=== PATIENT | male | born 1960 | race Caucasian/White ===

== ENCOUNTER → 2018-04-06 | Outpatient (CLI) | payer BC ==
[2018-04-06 18:01] LABS: BLOOD UREA NITROGEN 24 mg/dl (7-18); CARBON DIOXIDE 26 mmol/L (21-32); CREATININE 1.19 mg/dl (0.60-1.40); GLUCOSE 177 mg/dl (70-99); POTASSIUM 3.9 mmol/L (3.5-5.1); SODIUM 140 mmol/L (136-145)
== END | disposition home or self-care (01) ==
LOC: C.LABMFLN 14:17
PROVIDERS: ATTEND Family Medicine
DX: I10 Essential (primary) hypertension (principal)

== ENCOUNTER 2020-02-27 05:07 | Inpatient (IN) ==
--- NOTE | 2020-02-04 13:57 | Anesthesiology Consultation ---
Date of Service February 04, 2020 Assessment & Plan (1) Encounter for pre-operative examination: COVID Status: As of 02/03 assessment, patient denies travel to endemic area, known exposure/sick contacts, or symptoms of COVID19. Patient made aware to social distance, wear a mask in public and avoid travel for 14 days prior to surgery. 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 Preoperative COVID19 testing to be completed prior to surgery. Chart Review Chart Review: Acceptable Risk for Surgery and Patient seen in Pre Admission Testing Teaching & Discussion Instructed NPO after midnight before surgery, except medications with 15 cc of water. Medication instructions provided according to the PAT guidelines. History Surgery Operation Date: 02/27/20 10:10 Proposed Procedures p Right Total Knee Arthroplasty - Aleksey Rios MD Height/Weight Height: 6 ft 1 in Weight: 121.6 kg Allergies Allergy/AdvReac Type Severity Reaction Status Date / Time ragweed pollen Allergy Mild WATERY Verified 02/03/20 16:07 EYES/ITCHY THROAT BRAD Inhibitors Allergy Unknown UNSURE OF Verified 02/03/20 16:07 REACTION Cholestatin Allergy Unknown UNSURE OF Uncoded 02/03/20 16:07 REACTION Medications Home Medications Medication Instructions Recorded Confirmed Last Taken loratadine 10 mg tablet 10 mg PO DAILY #1 tab 01/31/19 02/03/20 Unknown furosemide 20 mg tablet 20 mg PO DAILY #90 tab 05/01/19 02/03/20 Unknown losartan 100 mg tablet 100 mg PO DAILY #90 tab 05/01/19 02/03/20 Unknown amlodipine 2.5 mg tablet 2.5 mg PO DAILY #90 tab 09/30/19 02/03/20 Unknown meloxicam 15 mg tablet 15 mg PO DAILY #30 tab 10/11/19 02/03/20 Unknown glucos sul [id number] 1 cap PO BID 02/03/20 02/03/20 Unknown [Glucosamine Chondroitin] Past Medical History Medical History Environmental allergies Hypertension Osteoarthritis Exercise / Class Metabolic Activity II 4-5 Yardwork/Stairs/Walk up hill (Denies Cp or SOB with 1 FOS) Past Family History Family History Brother Family history of diabetes mellitus Past Surgical History Surgical History H/O arthroscopic knee surgery R and L History of ankle surgery RT ANKLE History of colonoscopy History of tooth extraction Past Anesthesia History No Hx of Anesthesia Complications and No Family Hx of Anesthesia Complications History of PONV No Hx of PONV and No Hx of Motion Sickness Social History Smoking Status: Never smoker Do You Dip or Chew Tobacco: No Hx Alcohol Use: Yes Alcohol type: beer alcohol intake frequency: a few times a month Hx Substance Use: No substance use type: does not use Review of Systems Pt denies any recent chest pain, shortness of breath, palpitations, cough, fever or URI. Physical Exam Vital Signs BP: 134/87 P: 71bpm SPO2: 96% RA T: R: 16 ENMT Mouth: + dental restorations (one crown lower L rear molar); no chipped teeth and no loose teeth Thyromental Distance: > or= 3.5 Finger Breadths (3.5? difficult to palpate with rico) Mallampati Class: I Neck normal visual inspection and + facial hair (very long bushy thinish rico); neck extension not limited Respiratory normal respiratory effort Auscultation: lungs clear to auscultation bilaterally and + crackles (minimal L lung base) Cardiovascular Rate/Rhythm: regular rate and regular rhythm Heart Sounds: no murmur Testing Laboratory Results 02/04/20 14:18 02/04/20 14:18 PT 10.9 Seconds (9.0-12.0) 02/04/20 14:18 INR 1.0 (0.9-1.1) 02/04/20 14:18 APTT 25.5 Seconds (21.0-31.0) 02/04/20 14:18 Hemoglobin A1c 5.9 % (4.5-5.6) H 02/04/20 14:18 Urine Color Yellow 02/04/20 14:18 Urine Appearance Clear (Clear) 02/04/20 14:18 Urine pH 7.0 (4.5-7.5) 02/04/20 14:18 Ur Specific [place] 1.024 (1.000-1.030) 02/04/20 14:18 Urine Protein Negative (Negative) 02/04/20 14:18 Urine Glucose (UA) Negative (Negative) 02/04/20 14:18 Urine Ketones Negative (Negative) 02/04/20 14:18 Urine Nitrite Negative (Negative) 02/04/20 14:18 Ur Leukocyte Esterase Negative (Negative) 02/04/20 14:18 Blood Type B Positive 02/04/20 14:18 Antibody Screen NEGATIVE 02/04/20 14:18 Electrocardiogram Date: 02/04/20 Findings: + NSR @ (65bpm) Chest X-Ray Date: 02/04/20 Findings: + NAD
--- NOTE | 2020-02-04 14:18 | PAT Medication Instructions ---
Medication Instructions Date of Service February 04, 2020 Home Medications Medication Instructions Recorded furosemide 20 mg tablet 20 mg PO DAILY #90 tab 05/01/19 losartan 100 mg tablet 100 mg PO DAILY #90 tab 05/01/19 amlodipine 2.5 mg tablet 2.5 mg PO DAILY #90 tab 09/30/19 meloxicam 15 mg tablet 15 mg PO DAILY #30 tab 10/11/19 loratadine 10 mg tablet 10 mg PO DAILY furosemide 20 mg tablet 20 mg PO DAILY losartan 100 mg tablet 100 mg PO DAILY amlodipine 2.5 mg tablet 2.5 mg PO DAILY meloxicam 15 mg tablet 15 mg PO DAILY [Glucosamine Chondroitin] 1 cap PO BID ASK your surgeon for instructions meloxicam 15 mg tablet 15 mg PO DAILY STOP taking 2 weeks before surgery If surgery is within 2 weeks, stop taking as soon as possible. [Glucosamine Chondroitin] 1 cap PO BID DO NOT take the morning of surgery loratadine 10 mg tablet 10 mg PO DAILY furosemide 20 mg tablet 20 mg PO DAILY losartan 100 mg tablet 100 mg PO DAILY Take morning of surgery With a small sip of water, OTHERWISE NOTHING TO EAT OR DRINK AFTER MIDNIGHT: amlodipine 2.5 mg tablet 2.5 mg PO DAILY Other Notes If you have any questions please call us at [phone] or [phone] or or [phone]
--- NOTE | 2020-02-04 14:59 | XRay Report ---
XR chest Pre-admission PA/Lat HISTORY: Preop. COMPARISON: None. FINDINGS: The lungs are clear. Cardiac silhouette is normal in size. No pleural effusions. No pneumot horax. IMPRESSION: No acute process. ACT 112: Negative or not required by law. Electronically signed by: Yobani Rodriguez M.D. 02/04/2020 2:57 PM
[2020-02-04 15:57] LABS: Basophils # (auto) 0.04 K/uL (0-0.2); Basophils % (auto) 0.9 %; Eosinophils # (auto) 0.08 K/uL (0-0.5); Eosinophils % (auto) 1.9 %; Hemoglobin 14.6 g/dL (14.0-18.0); Immature Granulocytes # (auto) 0.02 K/uL (0.00-0.02); Immature Granulocytes % (auto) 0.5 %; Lymphocytes # (auto) 1.62 K/uL (1.2-3.4); Lymphocytes % (auto) 38.1 %; Mean Corpuscular Hemoglobin 29.6 pg (25-34); Mean Corpuscular Volume 87.2 fL (80-100); Mean Platelet Volume 10.8 fL (7.4-10.4); Monocytes % (auto) 9.4 %; Neutrophils # (auto) 2.09 K/uL (1.4-6.5); Neutrophils % (auto) 49.2 %; Platelet Count 160 K/uL (130-400); RDW Coefficient of Variation 13.7 % (11.5-14.5); RDW Standard Deviation 43.7 fL (36.4-46.3); Red Blood Count 4.93 M/uL (4.7-6.1); White Blood Count 4.25 K/uL (4.8-10.8)
[2020-02-04 16:01] LABS: Appearance Urine Clear (Clear); Bilirubin Urine Negative (Negative); Blood Urine Negative (Negative); Color Urine Yellow; Glucose Urine UA Negative (Negative); Ketones Urine Negative (Negative); Leukocyte Esterase Urine Negative (Negative); Nitrite Urine Negative (Negative); Protein Urine Negative (Negative); Specific Gravity Urine 1.024 (1.000-1.030); Urobilinogen Urine Negative (Negative)
--- NOTE | 2020-02-04 16:01 | Electrocardiogram Report ---
Test Reason : Blood Pressure : / mmHG Vent. Rate : 065 BPM Atrial Rate : 065 BPM P-R Int : 186 ms QRS Dur : 088 ms QT Int : 410 ms P-R-T Axes : 063 025 010 degrees QTc Int : 426 ms Normal sinus rhythm Normal ECG No previous ECGs available Confirmed by Ivan Patricia ([id number]) on 02/04/2020 4:00:43 PM Referred By: Aleksey Rios Confirmed By:Ivan Patricia
[2020-02-04 16:09] LABS: Albumin Level 3.8 gm/dl (3.4-5.0); BUN Creatinine Ratio 18.2 (10-20); Calcium 8.7 mg/dl (8.5-10.1); Creatinine Clr Calc Pharmacy 95.5 ml/min; Est GFR (African American) 82.6; Est GFR (Non-African American) 71.3; Potassium 4.4 mmol/L (3.5-5.1)
[2020-02-04 16:13] LABS: Partial Thromboplastin Ratio 0.9; Partial Thromboplastin Time 25.5 Seconds (21.0-31.0); Prothrombin Time 10.9 Seconds (9.0-12.0)
[2020-02-05 06:33] LABS: Estimated Average Glucose 123 mg/dl; Hemoglobin A1C 5.9 % (4.5-5.6)
--- NOTE | 2020-02-12 08:44 | History & Physical Report ---
Date of Service February 12, 2020 Assessment & Plan (1) Primary osteoarthritis of right knee: Treatment options discussed. He has failed conservative measures as above. Risks, benefits and alternatives to surgery including but not limited to infection, DVT, pain, stiffness, need for revision surgery, damage to blood vessels, damage to nerves, PE, , were discussed with the patient and they wish to proceed. Plan will be for right total knee arthroplasty at [facility] on 02/27/20. He will be placed on aspirin 81mg BID x 1 mo post op for DVT prophylaxis. Will plan on home health PT vs attending outpatient PT post discharge from the hospital. All questions answered. He will follow up post operatively. COVID-19 testing will be completed preoperatively. History of Present Illness Chief Complaint: Right knee pain Primary Care Provider: Rishi Sorenson DO 64 year old male with PMHx significant for HTN and environmental allergies presents with longstanding right knee pain. He previously has had initially done well. He has been having progressively worsening pain. Pain is interfering with his ability to carry out his daily activities. He has failed conservative measures including cortisone injections, viscoelastic injections, and anti- inflammatories. He would like to proceed with knee replacement. Patient denies headaches, sweats, fevers, chills, double vision, blurred vision, cough, sore throat, dysphagia, chest pain, sob, wheezing, n/v/d/c, numbness, tingling, fatigue, urinary symptoms, mood disorders. ROS positive for right knee pain and stiffness. Allergies Allergy/AdvReac Type Severity Reaction Status Date / Time ragweed pollen Allergy Mild WATERY Verified 02/03/20 16:07 EYES/ITCHY THROAT BRAD Inhibitors Allergy Unknown UNSURE OF Verified 02/03/20 16:07 REACTION Cholestatin Allergy Unknown UNSURE OF Uncoded 02/03/20 16:07 REACTION Home Medications Home Medications Medication Instructions Recorded Confirmed Type loratadine 10 mg tablet 10 mg PO DAILY #1 tab 01/31/19 02/03/20 History furosemide 20 mg tablet 20 mg PO DAILY #90 tab 05/01/19 02/03/20 Rx losartan 100 mg tablet 100 mg PO DAILY #90 tab 05/01/19 02/03/20 Rx amlodipine 2.5 mg tablet 2.5 mg PO DAILY #90 tab 09/30/19 02/03/20 Rx meloxicam 15 mg tablet 15 mg PO DAILY #30 tab 10/11/19 02/03/20 Rx glucos sul [id number]-[id number]-yiuyn-C-Mn 1 cap PO BID 02/03/20 02/03/20 History [Glucosamine Chondroitin] Past Med/Surg History Medical History Environmental allergies Hypertension Osteoarthritis Surgical History H/O arthroscopic knee surgery R and L History of ankle surgery RT ANKLE History of colonoscopy History of tooth extraction Family History Brother Family history of diabetes mellitus Social History (Updated 06/10/19 @ 16:09 by Kathryn Mojica MA) 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 Required: No Beliefs That Will Affect Care: None marital status: Current Living Situation: Spouse current occupational status: employed 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 Feels Safe at Home: Yes Smoking Status: Never smoker Second Hand Exposure: No ; Hx Alcohol Use: Yes Alcohol type: beer Alcohol Intake Frequency: Rarely Hx Substance Use: No Childhood Exposure to Second-Hand Smoke: No caffeine: Yes (coffee) Dental Care, Regularly: Yes Physical Activity Frequency: Does not Exercise Seatbelt Use: always Sunscreen Use: No Review of Systems All systems reviewed & are unremarkable except as noted in HPI & below Physical Exam Constitutional: well developed and well nourished; no acute distress Eyes: PERRL, conjunctivae normal, anicteric sclerae ENMT: external ear and nose normal, oropharynx normal Neck: trachea midline, no thyromegaly Respiratory: normal respiratory effort, lungs clear to auscultation Cardiovascular: RRR, no murmur, no edema Musculoskeletal: Right knee: Skin is normal. No lymphadenopathy is appreciated. Mild effusion, range of motion 0-135 flexion, negative anterior drawer, negative posterior drawer, negative King's, knee stable to varus and valgus stress at 0 to 30 of flexion. Tender to palpation medial joint line, positive Nancy's. Skin: no rashes, warm and dry Neurologic: patellar DTR's 2+ bilat, sensation intact Psychiatric: A+Ox3, euthymic affect Results & Data Laboratory Results Lab Results 02/04/20 02/04/20 02/04/20 Range/Units 14:18 14:18 14:18 WBC 4.25 L (4.8-10.8) K/uL RBC 4.93 (4.7-6.1) M/uL Hgb 14.6 (14.0-18.0) g/dL Hct 43.0 (42-52) % MCV 87.2 (80-100) fL MCH 29.6 (25-34) pg MCHC 34.0 (32-36) g/dL RDW Std Deviation 43.7 (36.4-46.3) fL RDW Coeff of Bita 13.7 (11.5-14.5) % Plt Count 160 (130-400) K/uL MPV 10.8 H (7.4-10.4) fL Immature Gran % (Auto) 0.5 % Neut % (Auto) 49.2 % Lymph % (Auto) 38.1 % Kaufman % (Auto) 9.4 % Eos % (Auto) 1.9 % Baso % (Auto) 0.9 % Neut # (Auto) 2.09 (1.4-6.5) K/uL Lymph # (Auto) 1.62 (1.2-3.4) K/uL [place]aufman # (Auto) 0.40 (0.11-0.59) K/uL Eos # (Auto) 0.08 (0-0.5) K/uL Baso # (Auto) 0.04 (0-0.2) K/uL Immature Gran # (Auto) 0.02 (0.00-0.02) K/uL PT 10.9 (9.0-12.0) Seconds INR 1.0 (0.9-1.1) APTT 25.5 (21.0-31.0) Seconds PTT Ratio 0.9 Sodium 141 (136-145) mmol/L Potassium 4.4 (3.5-5.1) mmol/L Chloride 109 H (98-107) mmol/L Carbon Dioxide 29 (21-32) mmol/L Anion Gap 3.0 (3-11) BUN 20 H (7-18) mg/dl Creatinine 1.11 (0.6-1.4) mg/dl Est Cr Clr Drug Dosing 95.5 ml/min Est GFR ( Amer) 82.6 Est GFR (Non-Af Amer) 71.3 BUN/Creatinine Ratio 18.2 (10-20) Glucose 94 (70-99) mg/dl Estimat Average Glucose mg/dl Hemoglobin A1c (4.5-5.6) % Calcium 8.7 (8.5-10.1) mg/dl Albumin 3.8 (3.4-5.0) gm/dl Urine Color Urine Appearance (Clear) Urine pH (4.5-7.5) Ur Specific [place] (1.000-1.030) Urine Protein (Negative) Urine Glucose (UA) (Negative) Urine Ketones (Negative) Urine Blood (Negative) Urine Nitrite (Negative) Urine Bilirubin (Negative) Urine Urobilinogen (Negative) Ur Leukocyte Esterase (Negative) Blood Type Antibody Screen 02/04/20 02/04/20 02/04/20 Range/Units 14:18 14:18 14:18 WBC (4.8-10.8) K/uL RBC (4.7-6.1) M/uL Hgb (14.0-18.0) g/dL Hct (42-52) % MCV (80-100) fL MCH (25-34) pg MCHC (32-36) g/dL RDW Std Deviation (36.4-46.3) fL RDW Coeff of Bita (11.5-14.5) % Plt Count (130-400) K/uL MPV (7.4-10.4) fL Immature Gran % (Auto) % Neut % (Auto) % Lymph % (Auto) % [place]auf[place] % (Auto) % Eos % (Auto) % Baso % (Auto) % Neut # (Auto) (1.4-6.5) K/uL Lymph # (Auto) (1.2-3.4) K/uL [place] # (Auto) (0.11-0.59) K/uL Eos # (Auto) (0-0.5) K/uL Baso # (Auto) (0-0.2) K/uL Immature Gran # (Auto) (0.00-0.02) K/uL PT (9.0-12.0) Seconds INR (0.9-1.1) APTT (21.0-31.0) Seconds PTT Ratio Sodium (136-145) mmol/L Potassium (3.5-5.1) mmol/L Chloride (98-107) mmol/L Carbon Dioxide (21-32) mmol/L Anion Gap (3-11) BUN (7-18) mg/dl Creatinine (0.6-1.4) mg/dl Est Cr Clr Drug Dosing ml/min Est GFR ( Amer) Est GFR (Non-Af Amer) BUN/Creatinine Ratio (10-20) Glucose (70-99) mg/dl Estimat Average Glucose 123 mg/dl Hemoglobin A1c 5.9 H (4.5-5.6) % Calcium (8.5-10.1) mg/dl Albumin (3.4-5.0) gm/dl Urine Color Yellow Urine Appearance Clear (Clear) Urine pH 7.0 (4.5-7.5) Ur Specific [place] 1.024 (1.000-1.030) Urine Protein Negative (Negative) Urine Glucose (UA) Negative (Negative) Urine Ketones Negative (Negative) Urine Blood Negative (Negative) Urine Nitrite Negative (Negative) Urine Bilirubin Negative (Negative) Urine Urobilinogen Negative (Negative) Ur Leukocyte Esterase Negative (Negative) Blood Type B Positive Antibody Screen NEGATIVE Diagnostic Findings Right knee radiographs: Near [id number] medial compartment osteophyte formation off the lateral condyle and medial tibial plateau, with subchondral sclerotic change. Arthritic change the patellofemoral compartment as well
[2020-02-27] MEDS ORDERED: dexAMETHasone 4 MG TAB PO SCH (06:00)
[2020-02-27] MEDS ORDERED: ACETAMINOPHEN 500 MG TAB PO SCH (06:00)
[2020-02-27] MEDS ORDERED: CeleBREX 200 MG CAP PO SCH (06:00)
[2020-02-27] MEDS ORDERED: FAMOTIDINE 20 MG TAB PO SCH (06:00)
[2020-02-27] MEDS ORDERED: TRANEXAMIC ACID 1,000 MG **IV Pre-op IV SCH (06:00)
[2020-02-27] MEDS ORDERED: LR 500ML BOLUS, THEN 15ML/HR IV SCH (06:00)
[2020-02-27] MEDS ORDERED: CEFAZOLIN 3000MG 72.5 ML IV SCH (06:00)
[2020-02-27] MEDS ORDERED: ROPIVACAINE 0.5% HCL/PF 150 MG, BUPIVACAINE 0.5% MPF 30 ML, EPINEPHrine 30MG/30ML (OR U... INSTIL SCH (06:00)
[2020-02-27] MEDS ORDERED: GABAPENTIN 600 MG DOSE PO SCH (06:00)
[2020-02-27] MEDS ORDERED: METOCLOPRAMIDE HCL 10 MG TABLET PO SCH (06:00)
[2020-02-27] MEDS ORDERED: TRANEXAMIC ACID 1,000 MG **IV Intra-op IV SCH (06:05)
[2020-02-27] MEDS ORDERED: EPINEPHrine INJ 1 MG/ML AMP ONE (06:30)
[2020-02-27] MEDS ORDERED: BUPIVACAINE 0.5 % 5 MG/1 ML PF 10ML VIAL ONE (06:30)
[2020-02-27] MEDS ORDERED: ROPIVACAINE 0.5% 5 MG/ML 30 ML VIAL ONE (06:30)
[2020-02-27] MEDS ORDERED: LIDOCAINE HCL 2% 2 ML VIAL/AMP(20MG/ML) INFIL ONE (06:30)
[2020-02-27] MEDS ORDERED: PROPOFOL IV EMULSION 10 MG/ML 20 ML VIAL IV ONE ×2 (06:30→07:45)
[2020-02-27] MEDS ORDERED: MIDAZOLAM HCL 1 MG/ML 2ML VIAL ONE (06:31)
[2020-02-27] MEDS ORDERED: fentaNYL citrate 100 MCG/2 ML VIAL ONE (06:31)
[2020-02-27] MEDS ORDERED: ONDANSETRON INJ 2 MG/ML 2 ML VIAL IV PRN ×2 (06:40→10:32)
[2020-02-27] MEDS ORDERED: HYDROmorphone INJ 1 MG/ML SYRINGE IV PRN (06:40)
[2020-02-27] MEDS ORDERED: LABETALOL HCL IV 5 MG/ML 20ML IV PRN (06:40)
[2020-02-27] MEDS ORDERED: fentaNYL citrate 100 MCG/2 ML VIAL IV PRN (06:40)
[2020-02-27] MEDS ORDERED: ePHEDrine sulfate 50 MG/ML AMP IV PRN (06:40)
[2020-02-27] MEDS ORDERED: PHENYLEPHRINE 100MCG/ML 5ML SYR IV PRN (06:40)
[2020-02-27] MEDS ORDERED: MEPERIDINE HCL 25 MG/ML CARP/VIAL IV PRN (06:40)
[2020-02-27] MEDS ORDERED: ATROPINE SULFATE 0.1 MG/ML 10ML SYR IV PRN (06:40)
[2020-02-27] MEDS ORDERED: BACITRACIN INJ 50,000 UNIT VIAL ONE (06:41)
[2020-02-27] MEDS ORDERED: ORTHO JOINT ANESTHETIC ONE (06:41)
--- NOTE | 2020-02-27 06:54 | History & Physical Bridge Note ---
Date of Service February 27, 2020 History & Physical Bridge Note I have examined the patient, reviewed the History & Physical and in the interval since the performance of the History & Physical I have noted the following changes of clinical significance: H&P states patient's age is 64 but it is 59.
--- NOTE | 2020-02-27 08:52 | Operative Report ---
Post Operative Report Pre & Post Diagnosis Operation Date: 02/27/20 07:00 Pre-Op Diagnosis: Unilateral Primary Osteoarthritis Right Knee Post-Op Diagnosis: Unilateral Primary Osteoarthritis Right Knee I identified the patient and participated in the time-out.: Yes Procedure Operation Date: 02/27/20 07:00 Actual Procedures p Right Total Knee Arthroplasty(Right) - Aleksey Rios MD Surgeon Aleksey Rios MD Data Management Manager Richard Morgan PA-C Estimated Blood Loss 20 Findings Consistent with Post-Op Diagnosis Specimens bone and tissue Drains none Anesthesia Type MAC Spinal Regional Complications none Disposition Accompanied Patient To Recovery: No Disposition: Recovery Room Indications Patient is a 59-year-old male boxing arthritic change in the right knee. [id number] medial part of the osteophyte formation of the medial femoral condyle medial tibial plateau with arthritic change in the other 2 compartments. He is failed conservative measures including injection, anti-inflammatories, rehab. He wishes to proceed with right total knee arthroplasty. Description of Procedure Risks benefits and alternatives of surgery including but not limited to infection, DVT, pain, stiffness, need for surgery, damage to blood vessels, damage to nerves or risks of anesthesia were discussed with the patient and they wished to proceed. The patient was identified and the laterality was confirmed and marked. They received a preoperative antibiotic as well as a spinal anesthetic and an abductor canal block. A well-padded tourniquet was applied and then the limb was prepped and draped in standard manner with ChloraPrep. The limb was exsanguinated and the tourniquet was inflated. I made a standard anterior incision. I sharply incised the skin then utilized Bovie electrocautery to achieve hemostasis. I made a medial parapatellar arthrotomy and mobilized the patella laterally. I then excised the anterior horns of the medial and lateral meniscus as well as the infrapatellar fat pad. I elevated a portion of the MCL off of the tibia. I then pinned into place a patient-matched distal femoral cutting guide and made my distal femoral resection. I then pinned into place the 5 in 1 femoral cutting guide. The pin holes that had been placed by the patient matched femoral cutting guide had the 5 and 1 femoral cutting guide into much external rotation. I switched to standard cutting instruments and redrilled. This gave us much more accurate external rotation. I made my anterior, posterior and chamfer cuts. I then excised the cruciates and the remaining portions of the menisci. I then pinned into place a patient- matched tibial cutting guide and made my tibial resection. I then pinned into place the tibial plate a utilizing alignment stefano to confirm rotation. I then cut for the post. Utilizing a lamina racecar driver and I then removed posterior osteophytes off the femur. I then placed a trial femur into position and cut for the trochlear component. I then sequentially trialed to size the polyethylene until there was good soft tissue balancing and range of motion. I then prepared the patella with a freehand cut utilizing sagittal saw. I sized and drilled for the patella. There was some lateral tracking the patella. Small lateral release was required. There was good tracking to the patella after this was done. All the trial components were removed. The deep tissues were anesthetized with an ortho mix solution. Then with Simplex HV with gentamicin cement, I cemented my definitive components. Definitive components, Cornell and Nephew Aaliyah 2: Femur 7 Tibia 6 Poly 9 Patella 35 oval A betadine soak was performed. The arthrotomy was closed with interrupted #1 Vicryl suture subcutaneous tissue was closed with interrupted 2-0 Vicryl suture. The skin was closed with with rona. An Acticoat and Hailey dressing were placed. Sterile dressings were applied. All needle and sponge counts were correct at the end of the procedure patient was transferred to the PACU in stable condition without apparent complication. The PA-C was necessary for assistance with procedure for assistance in positioning, prepping, draping, retraction and closure. I attest to the content of the Intraoperative Record and any orders documented therein. Any exceptions are noted below.
--- NOTE | 2020-02-27 10:08 | XRay Report ---
XR knee RT 1 or 2V routine CLINICAL HISTORY: Surgical Post Op postoperative COMPARISON: None. DISCUSSION: Anatomic alignment post total right knee arthroplasty. Could contact between prosthetic a nd underlying bone. Expected postoperative soft tissue change IMPRESSION: Anatomic alignment post total right knee arthroplasty. ACT 112: Negative or not required by law. The above report was generated using voice recognition software. It may contain grammatical, syntax or spelling errors. Electronically signed by: Wilman Levin M.D. 02/27/2020 10:07 AM
--- NOTE | 2020-02-27 10:19 | Anesthesiology Progress Note ---
Date of Service February 27, 2020 Anesthesia Post Procedure Vital Signs Vital Signs: Temp Pulse Pulse Resp BP Pulse Ox 02/27/20 10:10 36.4 C L 65 18 132/88 93 02/27/20 10:00 36.4 C L 72 21 123/82 95 02/27/20 09:50 63 10 L 130/83 98 02/27/20 09:40 95 H 15 134/87 98 02/27/20 09:34 36.4 C L 71 16 123/76 97 02/27/20 06:05 75 18 138/96 97 02/27/20 05:33 37.1 C 71 20 148/93 H 97 Transfer of Care Handoff Completed per policy Notes Mental Status: alert / awake / arousable Patient Amnestic to Procedure: Yes Nausea / Vomiting: adequately controlled Pain: adequately controlled Airway Patency, RR, SpO2: stable & adequate BP & HR: stable & adequate Hydration State: stable & adequate Neuraxial Anesthesia: was administered and sensory block is resolving Anesthetic Complications: no major complications apparent and Pt Satisfied with anesthetic care
[2020-02-27] MEDS ORDERED: TAMSULOSIN HCL 0.4 MG CAP PO PRN (10:32)
[2020-02-27] MEDS ORDERED: METOCLOPRAMIDE HCL INJ 5 MG/ML 2 ML VIAL IV PRN (10:32)
[2020-02-27] MEDS ORDERED: bisacodyL 10 MG SUPP PR PRN (10:32)
[2020-02-27] MEDS ORDERED: MAGNESIUM HYDROXIDE SUSP 30 ML UDC PO PRN (10:32)
[2020-02-27] MEDS ORDERED: OXYCODONE HCL IR 5 MG TAB (IMMEDIATE RELEASE) PO PRN (10:32)
[2020-02-27] MEDS ORDERED: NALOXONE HCL 0.4 MG/1 ML VIAL/CARP IV PRN (10:32)
[2020-02-27] MEDS ORDERED: HYDROmorphone INJ 0.5 MG/0.5 ML SYR IV PRN (10:32)
[2020-02-27] MEDS: ACETAMINOPHEN 500 MG TAB PO SCH ×2 (13:02→21:15)
[2020-02-27] MEDS: SODIUM CHLORIDE 0.9% 1000ML 1,000 ML IV SCH ×2 (13:04→23:06)
[2020-02-27] MEDS: CEFAZOLIN 2000MG 2,000 MG/15 ML SYR IV SCH (16:12)
[2020-02-27] MEDS ORDERED: SENNA 8.6 MG TAB PO SCH (21:00)
[2020-02-27] MEDS: DOCUSATE SODIUM 100 MG CAP PO SCH (21:11)
[2020-02-27] MEDS: CeleBREX 200 MG CAP PO SCH (21:13)
[2020-02-27] MEDS: ASPIRIN 81 MG ECTAB PO SCH (21:13)
[2020-02-28] MEDS: CEFAZOLIN 2000MG 2,000 MG/15 ML SYR IV SCH (00:21)
[2020-02-28] MEDS: ACETAMINOPHEN 500 MG TAB PO SCH (04:56)
[2020-02-28 06:26] LABS: Hematocrit (blood only) 34.9 % (42-52); Hemoglobin 11.9 g/dL (14.0-18.0); Mean Corpuscular Hemoglobin 29.4 pg (25-34); Mean Corpuscular Hgb Conc 34.1 g/dL (32-36); Mean Corpuscular Volume 86.2 fL (80-100); Mean Platelet Volume 10.1 fL (7.4-10.4); Platelet Count 136 K/uL (130-400); RDW Coefficient of Variation 13.7 % (11.5-14.5); RDW Standard Deviation 43.5 fL (36.4-46.3); Red Blood Count 4.05 M/uL (4.7-6.1); White Blood Count 10.01 K/uL (4.8-10.8)
[2020-02-28 07:03] LABS: BUN Creatinine Ratio 15.8 (10-20); Creatinine Clr Calc Pharmacy 88.5 ml/min; Est GFR (Non-African American) 65.5; Potassium 4.2 mmol/L (3.5-5.1)
--- NOTE | 2020-02-28 07:55 | Anesthesiology Progress Note ---
Date of Service February 28, 2020 Anesthesia Post Procedure Vital Signs Vital Signs: Temp Pulse Pulse Resp BP BP Pulse Ox 02/28/20 07:19 36.6 C 69 18 124/78 94 02/28/20 04:15 36.6 C 72 18 112/71 94 02/27/20 23:45 36.8 C 80 20 106/65 94 02/27/20 19:11 36.6 C 86 18 131/78 96 02/27/20 14:57 36.5 C 79 16 126/77 94 02/27/20 13:37 36.5 C 68 16 138/79 96 02/27/20 13:01 70 16 132/78 97 02/27/20 11:50 36.4 C L 73 16 119/74 95 02/27/20 10:56 70 16 119/76 98 02/27/20 10:10 36.4 C L 65 18 132/88 93 02/27/20 10:00 36.4 C L 72 21 123/82 95 02/27/20 09:50 63 10 L 130/83 98 02/27/20 09:40 95 H 15 134/87 98 02/27/20 09:34 36.4 C L 71 16 123/76 97 Notes Mental Status: alert / awake / arousable and participated in evaluation Patient Amnestic to Procedure: Yes Nausea / Vomiting: see Notes below Pain: adequately controlled Airway Patency, RR, SpO2: stable & adequate BP & HR: stable & adequate Hydration State: stable & adequate Neuraxial Anesthesia: was administered and sensory block resolved Anesthetic Complications: no major complications apparent and Pt Satisfied with anesthetic care Notes: Pt reports nausea in PACU and emesis x [address]. Resolved with treatment. Ate dinner without difficulty.
--- NOTE | 2020-02-28 08:11 | Orthopedic Progress Note ---
Date of Service February 28, 2020 Assessment & Plan (1) Primary osteoarthritis of right knee: POD#1 Right TKA -PT/OT -DVT prophylaxis-SCDs, TEDs, ASA 81mg BID x 1 mo -pain management -AM labs-hemoglobin at 11.9, acute blood loss anemia likely due to surgical loss vs dilutional effect -D/C planning-home with plans on OPPT post discharge, plan on discharge this afternoon as long as PT goes well. Admission and Anticipated Discharge Date Admission Date: February 27, 2020 Subjective Patient resting in bed comfortable. He is doing very well this morning, not really having much pain. Planning on OPPT. hoping to leave today. Denies chest pain, sob, headache, dizziness, light headedness, n/v/d. Review of Systems Review of Systems: All systems reviewed & are unremarkable except as noted in HPI & below Physical Exam Physical Exam: Right knee dressing is c/d/i, no calf tenderness, toes mobile with good dorsiflexion. Distally n/v status and sensation intact. Constitutional: well developed and well nourished; no acute distress Results & Data ([facility]) Vital Signs (Past 12 Hours) Vital Signs Temp Pulse Resp BP Pulse Ox 02/28/20 07:19 36.6 C 69 18 124/78 94 02/28/20 04:15 36.6 C 72 18 112/71 94 02/27/20 23:45 36.8 C 80 20 106/65 94 Laboratory Results Lab Results 02/04/20 02/04/20 02/04/20 Range/Units 14:18 14:18 14:18 WBC 4.25 L (4.8-10.8) K/uL RBC 4.93 (4.7-6.1) M/uL Hgb 14.6 (14.0-18.0) g/dL Hct 43.0 (42-52) % MCV 87.2 (80-100) fL MCH 29.6 (25-34) pg MCHC 34.0 (32-36) g/dL RDW Std Deviation 43.7 (36.4-46.3) fL RDW Coeff of Bita 13.7 (11.5-14.5) % Plt Count 160 (130-400) K/uL MPV 10.8 H (7.4-10.4) fL Immature Gran % (Auto) 0.5 % Neut % (Auto) 49.2 % Lymph % (Auto) 38.1 % [place] % (Auto) 9.4 % Eos % (Auto) 1.9 % Baso % (Auto) 0.9 % Neut # (Auto) 2.09 (1.4-6.5) K/uL Lymph # (Auto) 1.62 (1.2-3.4) K/uL [place] # (Auto) 0.40 (0.11-0.59) K/uL Eos # (Auto) 0.08 (0-0.5) K/uL Baso # (Auto) 0.04 (0-0.2) K/uL Immature Gran # (Auto) 0.02 (0.00-0.02) K/uL PT 10.9 (9.0-12.0) Seconds INR 1.0 (0.9-1.1) APTT 25.5 (21.0-31.0) Seconds PTT Ratio 0.9 Sodium 141 (136-145) mmol/L Potassium 4.4 (3.5-5.1) mmol/L Chloride 109 H (98-107) mmol/L Carbon Dioxide 29 (21-32) mmol/L Anion Gap 3.0 (3-11) BUN 20 H (7-18) mg/dl Creatinine 1.11 (0.6-1.4) mg/dl Est Cr Clr Drug Dosing 95.5 ml/min Est GFR ( Amer) 82.6 Est GFR (Non-Af Amer) 71.3 BUN/Creatinine Ratio 18.2 (10-20) Glucose 94 (70-99) mg/dl Estimat Average Glucose mg/dl Hemoglobin A1c (4.5-5.6) % Calcium 8.7 (8.5-10.1) mg/dl Albumin 3.8 (3.4-5.0) gm/dl Urine Color Urine Appearance (Clear) Urine pH (4.5-7.5) Ur Specific [place] (1.000-1.030) Urine Protein (Negative) Urine Glucose (UA) (Negative) Urine Ketones (Negative) Urine Blood (Negative) Urine Nitrite (Negative) Urine Bilirubin (Negative) Urine Urobilinogen (Negative) Ur Leukocyte Esterase (Negative) Blood Type Antibody Screen 02/04/20 02/04/20 02/04/20 Range/Units 14:18 14:18 14:18 WBC (4.8-10.8) K/uL RBC (4.7-6.1) M/uL Hgb (14.0-18.0) g/dL Hct (42-52) % MCV (80-100) fL MCH (25-34) pg MCHC (32-36) g/dL RDW Std Deviation (36.4-46.3) fL RDW Coeff of Bita (11.5-14.5) % Plt Count (130-400) K/uL MPV (7.4-10.4) fL Immature Gran % (Auto) % Neut % (Auto) % Lymph % (Auto) % [place] % (Auto) % Eos % (Auto) % Baso % (Auto) % Neut # (Auto) (1.4-6.5) K/uL Lymph # (Auto) (1.2-3.4) K/uL [place] # (Auto) (0.11-0.59) K/uL Eos # (Auto) (0-0.5) K/uL Baso # (Auto) (0-0.2) K/uL Immature Gran # (Auto) (0.00-0.02) K/uL PT (9.0-12.0) Seconds INR (0.9-1.1) APTT (21.0-31.0) Seconds PTT Ratio Sodium (136-145) mmol/L Potassium (3.5-5.1) mmol/L Chloride (98-107) mmol/L Carbon Dioxide (21-32) mmol/L Anion Gap (3-11) BUN (7-18) mg/dl Creatinine (0.6-1.4) mg/dl Est Cr Clr Drug Dosing ml/min Est GFR ( Amer) Est GFR (Non-Af Amer) BUN/Creatinine Ratio (10-20) Glucose (70-99) mg/dl Estimat Average Glucose 123 mg/dl Hemoglobin A1c 5.9 H (4.5-5.6) % Calcium (8.5-10.1) mg/dl Albumin (3.4-5.0) gm/dl Urine Color Yellow Urine Appearance Clear (Clear) Urine pH 7.0 (4.5-7.5) Ur Specific [place] 1.024 (1.000-1.030) Urine Protein Negative (Negative) Urine Glucose (UA) Negative (Negative) Urine Ketones Negative (Negative) Urine Blood Negative (Negative) Urine Nitrite Negative (Negative) Urine Bilirubin Negative (Negative) Urine Urobilinogen Negative (Negative) Ur Leukocyte Esterase Negative (Negative) Blood Type B Positive Antibody Screen NEGATIVE 02/28/20 02/28/20 Range/Units 05:57 05:57 WBC 10.01 (4.8-10.8) K/uL RBC 4.05 L (4.7-6.1) M/uL Hgb 11.9 L (14.0-18.0) g/dL Hct 34.9 L (42-52) % MCV 86.2 (80-100) fL MCH 29.4 (25-34) pg MCHC 34.1 (32-36) g/dL RDW Std Deviation 43.5 (36.4-46.3) fL RDW Coeff of Bita 13.7 (11.5-14.5) % Plt Count 136 (130-400) K/uL MPV 10.1 (7.4-10.4) fL Immature Gran % (Auto) % Neut % (Auto) % Lymph % (Auto) % [place] % (Auto) % Eos % (Auto) % Baso % (Auto) % Neut # (Auto) (1.4-6.5) K/uL Lymph # (Auto) (1.2-3.4) K/uL [place] # (Auto) (0.11-0.59) K/uL Eos # (Auto) (0-0.5) K/uL Baso # (Auto) (0-0.2) K/uL Immature Gran # (Auto) (0.00-0.02) K/uL PT (9.0-12.0) Seconds INR (0.9-1.1) APTT (21.0-31.0) Seconds PTT Ratio Sodium 143 (136-145) mmol/L Potassium 4.2 (3.5-5.1) mmol/L Chloride 112 H (98-107) mmol/L Carbon Dioxide 24 (21-32) mmol/L Anion Gap 7.0 (3-11) BUN 19 H (7-18) mg/dl Creatinine 1.19 (0.6-1.4) mg/dl Est Cr Clr Drug Dosing 88.5 ml/min Est GFR ( Amer) 76.0 Est GFR (Non-Af Amer) 65.5 BUN/Creatinine Ratio 15.8 (10-20) Glucose 138 H (70-99) mg/dl Estimat Average Glucose mg/dl Hemoglobin A1c (4.5-5.6) % Calcium 8.0 L (8.5-10.1) mg/dl Albumin (3.4-5.0) gm/dl Urine Color Urine Appearance (Clear) Urine pH (4.5-7.5) Ur Specific [place] (1.000-1.030) Urine Protein (Negative) Urine Glucose (UA) (Negative) Urine Ketones (Negative) Urine Blood (Negative) Urine Nitrite (Negative) Urine Bilirubin (Negative) Urine Urobilinogen (Negative) Ur Leukocyte Esterase (Negative) Blood Type Antibody Screen
[2020-02-28] MEDS: DOCUSATE SODIUM 100 MG CAP PO SCH (08:30)
[2020-02-28] MEDS: CeleBREX 200 MG CAP PO SCH (08:30)
[2020-02-28] MEDS: ASPIRIN 81 MG ECTAB PO SCH (08:30)
[2020-02-28] MEDS ORDERED: LORATADINE 10 MG TAB PO SCH (09:00)
[2020-02-28] MEDS ORDERED: LOSARTAN POTASSIUM 50 MG TAB PO SCH (09:00)
[2020-02-28] MEDS ORDERED: AMLODIPINE BESYLATE 5 MG TAB PO SCH (09:00)
[2020-02-28] MEDS ORDERED: MULTIVITAMIN TAB PO SCH (09:00)
[2020-02-28] MEDS ORDERED: OLMESARTAN MEDOXOMIL 40 MG TAB PO SCH (09:00)
[2020-02-28] MEDS ORDERED: FUROSEMIDE 20 MG TAB PO SCH (09:00)
--- NOTE | 2020-02-28 12:24 | Discharge Summary ---
Date of Service February 28, 2020 Admission HPI Per Admitting Provider 64 year old male with PMHx significant for HTN and environmental allergies presents with longstanding right knee pain. He previously has had initially done well. He has been having progressively worsening pain. Pain is interfering with his ability to carry out his daily activities. He has failed conservative measures including cortisone injections, viscoelastic injections, and anti- inflammatories. He would like to proceed with knee replacement. Patient denies headaches, sweats, fevers, chills, double vision, blurred vision, cough, sore throat, dysphagia, chest pain, sob, wheezing, n/v/d/c, numbness, tingling, fat igue, urinary symptoms, mood disorders. ROS positive for right knee pain and stiffness. Admission Exam Per Admitting Provider Constitutional: well developed and well nourished; no acute distress Eyes: PERRL, conjunctivae normal, anicteric sclerae ENMT: external ear and nose normal, oropharynx normal Neck: trachea midline, no thyromegaly Respiratory: normal respiratory effort, lungs clear to auscultation Cardiovascular: RRR, no murmur, no edema Musculoskeletal: Right knee: Skin is normal. No lymphadenopathy is appreciated. Mild effusion, range of motion 0-135 flexion, negative anterior drawer, negative posterior drawer, negative King's, knee stable to varus and valgus stress at 0 to 30 of flexion. Tender to palpation medial joint line, positive Nancy's. Skin: no rashes, warm and dry Neurologic: patellar DTR's 2+ bilat, sensation intact Psychiatric: A+Ox3, euthymic affect Principal Diagnosis Right knee osteoarthritis Discharge Exam Constitutional well developed and well nourished; no acute distress Eyes PERRL, conjunctivae normal, anicteric sclerae ENMT external ear and nose normal, oropharynx normal Neck trachea midline, no thyromegaly Respiratory normal respiratory effort, lungs clear to auscultation Cardiovascular RRR, no murmur, no edema Skin no rashes, warm and dry Neurologic patellar DTR's 2+ bilat, sensation intact Psychiatric A+Ox3, euthymic affect Discharge Data Allergies Allergy/AdvReac Type Severity Reaction Status Date / Time ragweed pollen Allergy Mild WATERY Verified 02/27/20 05:30 EYES/ITCHY THROAT BRAD Inhibitors Allergy Unknown UNSURE OF Verified 02/27/20 05:30 REACTION Cholestatin Allergy Unknown UNSURE OF Uncoded 02/03/20 16:07 REACTION Consultations 02/27/20 10:32 Consult Case Management - Discharge Planning Routine Procedures Performed Operation Date: 02/27/20 07:00 Actual Procedures p Right Total Knee Arthroplasty(Right) - Aleksey Rios MD Ordered Studies 02/27/20 05:00 US - OR guided needle placemen Routine Hospital Course (1) Primary osteoarthritis of right knee: Patient presented for same day admission following right total knee arthroplasty on 02/27/20. He tolerated procedure well. The Patient had an uneventful hospital course. Post-operatively, his activity was progressed and well tolerated. They participated in PT with ambulation distance of 325 feet. ROM of operative knee reached 80 degrees. Labs remained stable- lowest hemoglobin recorded: 11.9. Pain controlled on oral medications. Please refer to daily progress notes and PT notes for complete details. After exam on 02/28/20, patient was felt to be stable for discharge home with plan on outpatient PT. Patient will f/u in the office in about 2 weeks for further evaluation including x-rays and incision check, sooner if having any issues or concerns. POD#1 Right TKA -PT/OT -DVT prophylaxis-SCDs, TEDs, ASA 81mg BID x 1 mo -pain management -AM labs-hemoglobin at 11.9, acute blood loss anemia likely due to surgical loss vs dilutional effect -D/C planning-home with plans on OPPT post discharge, plan on discharge this afternoon as long as PT goes well. Lab Results 02/04/20 02/04/20 02/04/20 Range/Units 14:18 14:18 14:18 WBC 4.25 L (4.8-10.8) K/uL RBC 4.93 (4.7-6.1) M/uL Hgb 14.6 (14.0-18.0) g/dL Hct 43.0 (42-52) % MCV 87.2 (80-100) fL MCH 29.6 (25-34) pg MCHC 34.0 (32-36) g/dL RDW Std Deviation 43.7 (36.4-46.3) fL RDW Coeff of Bita 13.7 (11.5-14.5) % Plt Count 160 (130-400) K/uL MPV 10.8 H (7.4-10.4) fL Immature Gran % (Auto) 0.5 % Neut % (Auto) 49.2 % Lymph % (Auto) 38.1 % [place] % (Auto) 9.4 % Eos % (Auto) 1.9 % Baso % (Auto) 0.9 % Neut # (Auto) 2.09 (1.4-6.5) K/uL Lymph # (Auto) 1.62 (1.2-3.4) K/uL [place] # (Auto) 0.40 (0.11-0.59) K/uL Eos # (Auto) 0.08 (0-0.5) K/uL Baso # (Auto) 0.04 (0-0.2) K/uL Immature Gran # (Auto) 0.02 (0.00-0.02) K/uL PT 10.9 (9.0-12.0) Seconds INR 1.0 (0.9-1.1) APTT 25.5 (21.0-31.0) Seconds PTT Ratio 0.9 Sodium 141 (136-145) mmol/L Potassium 4.4 (3.5-5.1) mmol/L Chloride 109 H (98-107) mmol/L Carbon Dioxide 29 (21-32) mmol/L Anion Gap 3.0 (3-11) BUN 20 H (7-18) mg/dl Creatinine 1.11 (0.6-1.4) mg/dl Est Cr Clr Drug Dosing 95.5 ml/min Est GFR ( Amer) 82.6 Est GFR (Non-Af Amer) 71.3 BUN/Creatinine Ratio 18.2 (10-20) Glucose 94 (70-99) mg/dl Estimat Average Glucose mg/dl Hemoglobin A1c (4.5-5.6) % Calcium 8.7 (8.5-10.1) mg/dl Albumin 3.8 (3.4-5.0) gm/dl Urine Color Urine Appearance (Clear) Urine pH (4.5-7.5) Ur Specific [place] (1.000-1.030) Urine Protein (Negative) Urine Glucose (UA) (Negative) Urine Ketones (Negative) Urine Blood (Negative) Urine Nitrite (Negative) Urine Bilirubin (Negative) Urine Urobilinogen (Negative) Ur Leukocyte Esterase (Negative) Hepatitis C Ab Screen (Neg) Blood Type Antibody Screen 02/04/20 02/04/20 02/04/20 Range/Units 14:18 14:18 14:18 WBC (4.8-10.8) K/uL RBC (4.7-6.1) M/uL Hgb (14.0-18.0) g/dL Hct (42-52) % MCV (80-100) fL MCH (25-34) pg MCHC (32-36) g/dL RDW Std Deviation (36.4-46.3) fL RDW Coeff of Bita (11.5-14.5) % Plt Count (130-400) K/uL MPV (7.4-10.4) fL Immature Gran % (Auto) % Neut % (Auto) % Lymph % (Auto) % [place] % (Auto) % Eos % (Auto) % Baso % (Auto) % Neut # (Auto) (1.4-6.5) K/uL Lymph # (Auto) (1.2-3.4) K/uL [place] # (Auto) (0.11-0.59) K/uL Eos # (Auto) (0-0.5) K/uL Baso # (Auto) (0-0.2) K/uL Immature Gran # (Auto) (0.00-0.02) K/uL PT (9.0-12.0) Seconds INR (0.9-1.1) APTT (21.0-31.0) Seconds PTT Ratio Sodium (136-145) mmol/L Potassium (3.5-5.1) mmol/L Chloride (98-107) mmol/L Carbon Dioxide (21-32) mmol/L Anion Gap (3-11) BUN (7-18) mg/dl Creatinine (0.6-1.4) mg/dl Est Cr Clr Drug Dosing ml/min Est GFR ( Amer) Est GFR (Non-Af Amer) BUN/Creatinine Ratio (10-20) Glucose (70-99) mg/dl Estimat Average Glucose 123 mg/dl Hemoglobin A1c 5.9 H (4.5-5.6) % Calcium (8.5-10.1) mg/dl Albumin (3.4-5.0) gm/dl Urine Color Yellow Urine Appearance Clear (Clear) Urine pH 7.0 (4.5-7.5) Ur Specific [place] 1.024 (1.000-1.030) Urine Protein Negative (Negative) Urine Glucose (UA) Negative (Negative) Urine Ketones Negative (Negative) Urine Blood Negative (Negative) Urine Nitrite Negative (Negative) Urine Bilirubin Negative (Negative) Urine Urobilinogen Negative (Negative) Ur Leukocyte Esterase Negative (Negative) Hepatitis C Ab Screen (Neg) Blood Type B Positive Antibody Screen NEGATIVE 02/28/20 02/28/20 02/28/20 Range/Units 05:57 05:57 05:57 WBC 10.01 (4.8-10.8) K/uL RBC 4.05 L (4.7-6.1) M/uL Hgb 11.9 L (14.0-18.0) g/dL Hct 34.9 L (42-52) % MCV 86.2 (80-100) fL MCH 29.4 (25-34) pg MCHC 34.1 (32-36) g/dL RDW Std Deviation 43.5 (36.4-46.3) fL RDW Coeff of Bita 13.7 (11.5-14.5) % Plt Count 136 (130-400) K/uL MPV 10.1 (7.4-10.4) fL Immature Gran % (Auto) % Neut % (Auto) % Lymph % (Auto) % [place] % (Auto) % Eos % (Auto) % Baso % (Auto) % Neut # (Auto) (1.4-6.5) K/uL Lymph # (Auto) (1.2-3.4) K/uL [place] # (Auto) (0.11-0.59) K/uL Eos # (Auto) (0-0.5) K/uL Baso # (Auto) (0-0.2) K/uL Immature Gran # (Auto) (0.00-0.02) K/uL PT (9.0-12.0) Seconds INR (0.9-1.1) APTT (21.0-31.0) Seconds PTT Ratio Sodium 143 (136-145) mmol/L Potassium 4.2 (3.5-5.1) mmol/L Chloride 112 H (98-107) mmol/L Carbon Dioxide 24 (21-32) mmol/L Anion Gap 7.0 (3-11) BUN 19 H (7-18) mg/dl Creatinine 1.19 (0.6-1.4) mg/dl Est Cr Clr Drug Dosing 88.5 ml/min Est GFR ( Amer) 76.0 Est GFR (Non-Af Amer) 65.5 BUN/Creatinine Ratio 15.8 (10-20) Glucose 138 H (70-99) mg/dl Estimat Average Glucose mg/dl Hemoglobin A1c (4.5-5.6) % Calcium 8.0 L (8.5-10.1) mg/dl Albumin (3.4-5.0) gm/dl Urine Color Urine Appearance (Clear) Urine pH (4.5-7.5) Ur Specific [place] (1.000-1.030) Urine Protein (Negative) Urine Glucose (UA) (Negative) Urine Ketones (Negative) Urine Blood (Negative) Urine Nitrite (Negative) Urine Bilirubin (Negative) Urine Urobilinogen (Negative) Ur Leukocyte Esterase (Negative) Hepatitis C Ab Screen Neg (Neg) Blood Type Antibody Screen Total Time Total Time Spent Total Time Spent (In Minutes): 20 Discharge Plan Discharge Items Patient Disposition: Home - Self-Care Reason For Visit: RIGHT KNEE OSTEOARTHRITIS Discharge Diagnosis: Right knee osteoarthritis Activity: Per Instructions section Non-emergency contact: Surgeon Call non-emergency contact if: you have any medication questions, your pain is not controlled, your pain is worsening, your pain is concerning for you, you have a fever, your temperature is above 101, your wound has increased redness and your wound pain has increased Follow-up/Referrals: Rishi Sorenson DO [Primary Care Provider] - Diet: Regular Addtl Attending Provider Instructions: ACTIVITY RECOMMENDATIONS: SELF CARE INSTRUCTIONS AFTER TOTAL KNEE REPLACEMENT A. You may need to continue a physical therapy program after discharge from the hospital. There are several options available to you. Your doctor will assist you in selecting the best one for you. 1. An out-patient facility 2 to 3 times a week for therapy or home therapy. 2. Continue working on all exercises taught to you in the hospital. Your goals should be to increase bending of your knee to 90 degrees and beyond and to fully straighten your knee. B. You may progress at your own pace from walking with a walker or crutches to a cane; then to no assistive devices. C. Make walking a part of your daily routine. Be up as much as comfortable with rest periods throughout the day. Rest with leg elevation is very important. Use the ice wrap frequently for the first 3-4 weeks. D. There are no restrictions on activities. You may ride in a car, shop, participate in first helper and all social activities. E. Wear the long elastic stockings (LORRIE hose) 20 hours a day for 2 weeks after surgery. They can be removed several times a day for laundering and for a bath. F. You may shower, no tub baths until cleared by your doctor. SPECIAL CARE INSTRUCTIONS: VERY IMPORTANT TO READ AND REVIEW A. There are a few signs you need to watch for after you are home. Call [facility] if you notice any of the followin. Increased severe knee pain. Some pain is expected especially when you exercise. 2. Increased swelling in your leg or knee; pain or swelling of the calf muscle in either lower leg. 3. Any fluid drainage from the incision. 4. Shortness of breath or chest pain. B. Please call [facility] at if you have any concerns or questions about your operation or recovery. The doctor or his nurse will return your call promptly. C. You must take antibiotics before dental work, bladder, bowel or other surgery. Your doctor will provide you with a permanent care to carry describing this precaution. IMPORTANT: * REMEMBER TO TAKE ASPIRIN, 81 MG, TWICE DAILY FOR 4 WEEKS UNLESS OTHERWISE DIRECTED. THIS IS YOUR BLOOD THINNER. * HIGH RISK PATIENTS MAY BE PRESCRIBED A STRONGER BLOOD THINNER. THIS WILL BE PROVIDED AT DISCHARGE. * CALL IF INCREASED PAIN, REDNESS, DRAINAGE OR FEVER GREATER THAT 101. * WEAR LORRIE HOSE 20 HOURS PER DAY FOR 2 WEEKS. This is a large suction dressing covering your incision. This will help pull any excess drainage from the wound and allow your incision to heal properly. You may shower with this if you can keep the unit outside of the shower. If any bleeding or leakage is noted please call your doctor's office. This will remain on your incision for 7 days and then should be removed. This can be done yourself or by the home nursing staff if applicable. The entire unit is disposable once removed. Once removed, keep incision clean and dry. If redness or drainage is noted, please call your surgeon. FOLLOW UP VISIT: If appointment is not already scheduled: Please call [facility] to make a follow-up appointment for 2 weeks after your surgery at . Stand-Alone Forms: [employer], Opioid Pain Management, Smoking Cessation Medications and DC Order Prescriptions: New celecoxib [Celebrex] 200 mg Capsule 200 mg PO BID Qty: 60 RF: 0 aspirin 81 mg Tablet,Delayed Release (Dr/Ec) 81 mg PO BID Qty: 60 RF: 0 acetaminophen 500 mg Tablet 1,000 mg PO Q8 Qty: 60 RF: 0 oxycodone 5 mg Tablet 5 - 10 mg PO .Q4H-6H MDD 6 PRN (Reason: pain) Qty: 30 RF: 0 Continued losartan 100 mg tablet 100 mg PO DAILY Qty: 90 RF: 3 furosemide 20 mg tablet 20 mg PO DAILY Qty: 90 RF: 3 amlodipine 2.5 mg tablet 2.5 mg PO DAILY Qty: 90 RF: 3 olmesartan [Benicar] 40 mg tablet 40 mg PO DAILY Qty: 90 RF: 3 loratadine 10 mg tablet 10 mg PO DAILY Qty: 1 RF: 0 Glucosamine Chondroitin 550-30-1 mg Capsule 1 cap PO BID RF: 0 Discontinued meloxicam [Mobic] 15 mg tablet 15 mg PO DAILY Qty: 30 RF: 5 Discharge Orders: Discharge Order (Routine); Ordered 02/28/20 Ordered By: Richard James/Other Patient Handouts: How Your Knee Works, Total Knee Replacement Admission Data Admit Date/Time: 02/27/20 09:41 Attending Provider: Aleksey Rios Admit Provider: Aleksey Rios Primary Care Provider: Rishi Sorenson Other Interventions: Discharge Summary Assessment (RN) Last Done: 02/28/20 08:40 DC Date/Time DO NOT enter until pt leaves facility: 02/28/20 11:30
== END 2020-02-28 11:30 | disposition home or self-care (01) | DRG 470 ==
LOC: ASU 05:07 → 3E 09:41